=== PATIENT | female | born 1940 | race Two or more races ===

== ENCOUNTER 2020-11-18 11:15 | Outpatient (CLI) | payer MEDICARE, BC | END 2020-11-18 23:59 | disposition home health service (06) | LOC: WOU 11:15 | PROVIDERS: ATTEND Specialist | DX: I87.312 Chronic venous hypertension (idiopathic) with ulcer of left lower extremity (principal); L97.322 Non-pressure chronic ulcer of left ankle with fat layer exposed; I87.2 Venous insufficiency (chronic) (peripheral); S91.311D Laceration without foreign body, right foot, subsequent encounter; V49.9XXD Car occupant (driver) (passenger) injured in unspecified traffic accident, subsequent encounter; R60.0 Localized edema | CPT/HCPCS: 29580; A6209 ==

== ENCOUNTER 2020-11-25 11:30 | Outpatient (CLI) | payer MEDICARE, BC | END 2020-11-25 23:59 | disposition home health service (06) | LOC: WOU 11:30 | PROVIDERS: ATTEND Specialist | DX: I87.312 Chronic venous hypertension (idiopathic) with ulcer of left lower extremity (principal); L97.328 Non-pressure chronic ulcer of left ankle with other specified severity; I87.2 Venous insufficiency (chronic) (peripheral); S81.812D Laceration without foreign body, left lower leg, subsequent encounter; V49.9XXD Car occupant (driver) (passenger) injured in unspecified traffic accident, subsequent encounter; R22.43 Localized swelling, mass and lump, lower limb, bilateral | CPT/HCPCS: G0463 ==

== ENCOUNTER 2020-12-02 10:30 | Outpatient (CLI) | payer MEDICARE, BC | END 2020-12-02 23:59 | disposition home health service (06) | LOC: WOU 10:30 | PROVIDERS: ATTEND Specialist | DX: S81.812D Laceration without foreign body, left lower leg, subsequent encounter (principal); V49.9XXD Car occupant (driver) (passenger) injured in unspecified traffic accident, subsequent encounter; I87.2 Venous insufficiency (chronic) (peripheral); R22.43 Localized swelling, mass and lump, lower limb, bilateral | CPT/HCPCS: A6197; G0463 ==

== ENCOUNTER 2020-12-09 11:06 | Outpatient (CLI) | payer MEDICARE, BC | END 2020-12-09 23:59 | disposition home health service (06) | LOC: WOU 11:06 | PROVIDERS: ATTEND Specialist | DX: S81.812D Laceration without foreign body, left lower leg, subsequent encounter (principal); V49.9XXD Car occupant (driver) (passenger) injured in unspecified traffic accident, subsequent encounter; I87.2 Venous insufficiency (chronic) (peripheral); R22.43 Localized swelling, mass and lump, lower limb, bilateral; Z87.891 Personal history of nicotine dependence; M79.662 Pain in left lower leg | CPT/HCPCS: A6209; G0463 ==

== ENCOUNTER 2020-12-16 11:30 | Outpatient (CLI) | payer MEDICARE, BC | END 2020-12-16 23:59 | disposition home health service (06) | LOC: WOU 11:30 | PROVIDERS: ATTEND Specialist | DX: S81.812D Laceration without foreign body, left lower leg, subsequent encounter (principal); V49.40XD Driver injured in collision with unspecified motor vehicles in traffic accident, subsequent encounter; I87.2 Venous insufficiency (chronic) (peripheral); R60.0 Localized edema; Z79.899 Other long term (current) drug therapy | CPT/HCPCS: G0463 ==

== ENCOUNTER 2020-12-23 10:45 | Outpatient (CLI) | payer MEDICARE, BC | END 2020-12-23 23:59 | disposition home health service (06) | LOC: WOU 10:45 | PROVIDERS: ATTEND Specialist | DX: S81.812D Laceration without foreign body, left lower leg, subsequent encounter (principal); V49.9XXD Car occupant (driver) (passenger) injured in unspecified traffic accident, subsequent encounter; I87.312 Chronic venous hypertension (idiopathic) with ulcer of left lower extremity; L97.328 Non-pressure chronic ulcer of left ankle with other specified severity; I87.2 Venous insufficiency (chronic) (peripheral); R60.0 Localized edema; T79.2XXD Traumatic secondary and recurrent hemorrhage and seroma, subsequent encounter; Z79.899 Other long term (current) drug therapy | CPT/HCPCS: A6197; A6253; G0463; A6209 ==

== ENCOUNTER 2020-12-30 11:25 | Outpatient (CLI) | payer MEDICARE, BC ==
[2020-12-30] MEDS ORDERED: LIDOCAINE SOLN 4% 50 ML BOTTLE ONE (11:53)
== END 2020-12-30 23:59 | disposition home health service (06) ==
LOC: WOU 11:25
PROVIDERS: ATTEND Specialist
DX: I87.312 Chronic venous hypertension (idiopathic) with ulcer of left lower extremity (principal); L97.328 Non-pressure chronic ulcer of left ankle with other specified severity; S81.812D Laceration without foreign body, left lower leg, subsequent encounter; V49.9XXD Car occupant (driver) (passenger) injured in unspecified traffic accident, subsequent encounter; I87.2 Venous insufficiency (chronic) (peripheral); T79.2XXD Traumatic secondary and recurrent hemorrhage and seroma, subsequent encounter; Z79.899 Other long term (current) drug therapy
CPT/HCPCS: G0463

== ENCOUNTER 2021-01-06 11:00 | Outpatient (CLI) | payer MEDICARE, BC | END 2021-01-06 23:59 | disposition home or self-care (01) | LOC: WOU 11:00 | PROVIDERS: ATTEND Specialist | DX: I87.312 Chronic venous hypertension (idiopathic) with ulcer of left lower extremity (principal); L97.328 Non-pressure chronic ulcer of left ankle with other specified severity; L97.823 Non-pressure chronic ulcer of other part of left lower leg with necrosis of muscle; I87.2 Venous insufficiency (chronic) (peripheral); R60.0 Localized edema; Z79.899 Other long term (current) drug therapy | CPT/HCPCS: G0463 ==

== ENCOUNTER 2021-01-13 11:27 | Outpatient (CLI) | payer MEDICARE, BC ==
[2021-01-13] MEDS ORDERED: LIDOCAINE SOLN 4% 50 ML BOTTLE ONE (11:35)
== END 2021-01-13 23:59 | disposition home health service (06) ==
LOC: WOU 11:27
PROVIDERS: ATTEND Specialist
DX: S81.812A Laceration without foreign body, left lower leg, initial encounter (principal); X58.XXXA Exposure to other specified factors, initial encounter; Y92.89 Other specified places as the place of occurrence of the external cause; L97.328 Non-pressure chronic ulcer of left ankle with other specified severity; I87.2 Venous insufficiency (chronic) (peripheral); R60.0 Localized edema; Z79.899 Other long term (current) drug therapy
CPT/HCPCS: 11042

== ENCOUNTER 2021-01-20 11:20 | Outpatient (CLI) | payer MEDICARE, BC ==
[2021-01-20] MEDS ORDERED: LIDOCAINE SOLN 4% 50 ML BOTTLE ONE (11:29)
== END 2021-01-20 23:59 | disposition home health service (06) ==
LOC: WOU 11:20
PROVIDERS: ATTEND Specialist
DX: I87.312 Chronic venous hypertension (idiopathic) with ulcer of left lower extremity (principal); L97.322 Non-pressure chronic ulcer of left ankle with fat layer exposed; L97.328 Non-pressure chronic ulcer of left ankle with other specified severity; S81.812D Laceration without foreign body, left lower leg, subsequent encounter; X58.XXXD Exposure to other specified factors, subsequent encounter; I87.2 Venous insufficiency (chronic) (peripheral); R60.0 Localized edema; Z87.891 Personal history of nicotine dependence; Z79.899 Other long term (current) drug therapy
CPT/HCPCS: 87070; 87075; 87077; A6210; A6452; G0463

== ENCOUNTER 2021-01-27 11:05 | Outpatient (CLI) | payer MEDICARE, BC | END 2021-01-27 23:59 | disposition home health service (06) | LOC: WOU 11:05 | PROVIDERS: ATTEND Specialist | DX: I87.312 Chronic venous hypertension (idiopathic) with ulcer of left lower extremity (principal); L97.322 Non-pressure chronic ulcer of left ankle with fat layer exposed; L97.328 Non-pressure chronic ulcer of left ankle with other specified severity; S81.812D Laceration without foreign body, left lower leg, subsequent encounter; V49.9XXD Car occupant (driver) (passenger) injured in unspecified traffic accident, subsequent encounter; I87.2 Venous insufficiency (chronic) (peripheral); R60.0 Localized edema | CPT/HCPCS: A6210; G0463 ==

== ENCOUNTER 2021-02-03 11:15 | Outpatient (CLI) | payer MEDICARE, BC | END 2021-02-03 23:59 | disposition home or self-care (01) | LOC: WOU 11:15 | PROVIDERS: ATTEND Specialist | DX: I87.312 Chronic venous hypertension (idiopathic) with ulcer of left lower extremity (principal); L97.322 Non-pressure chronic ulcer of left ankle with fat layer exposed; S71.112D Laceration without foreign body, left thigh, subsequent encounter; V49.69XD Unspecified car occupant injured in collision with other motor vehicles in traffic accident, subsequent encounter; T79.2XXD Traumatic secondary and recurrent hemorrhage and seroma, subsequent encounter; R60.0 Localized edema; M79.7 Fibromyalgia; J44.9 Chronic obstructive pulmonary disease, unspecified; Z90.710 Acquired absence of both cervix and uterus; Z87.891 Personal history of nicotine dependence; Z79.899 Other long term (current) drug therapy | CPT/HCPCS: A6210; A6253; G0463 ==

== ENCOUNTER 2021-02-17 11:22 | Outpatient (CLI) | payer MEDICARE, BC | END 2021-02-17 23:59 | disposition home health service (06) | LOC: WOU 11:22 | PROVIDERS: ATTEND Specialist | DX: I87.312 Chronic venous hypertension (idiopathic) with ulcer of left lower extremity (principal); L97.322 Non-pressure chronic ulcer of left ankle with fat layer exposed; S81.812D Laceration without foreign body, left lower leg, subsequent encounter; X58.XXXD Exposure to other specified factors, subsequent encounter; J44.9 Chronic obstructive pulmonary disease, unspecified; M79.7 Fibromyalgia; T79.2XXA Traumatic secondary and recurrent hemorrhage and seroma, initial encounter; R22.43 Localized swelling, mass and lump, lower limb, bilateral; I87.2 Venous insufficiency (chronic) (peripheral); Z79.899 Other long term (current) drug therapy | CPT/HCPCS: A6210; G0463 ==

== ENCOUNTER 2021-02-24 10:45 | Outpatient (CLI) | payer MEDICARE, BC ==
[2021-02-24] MEDS ORDERED: LIDOCAINE SOLN 4% 50 ML BOTTLE ONE (10:54)
== END 2021-02-24 23:59 | disposition home health service (06) ==
LOC: WOU 10:45
PROVIDERS: ATTEND Specialist
DX: I87.312 Chronic venous hypertension (idiopathic) with ulcer of left lower extremity (principal); L97.322 Non-pressure chronic ulcer of left ankle with fat layer exposed; S81.812D Laceration without foreign body, left lower leg, subsequent encounter; V49.60XD Unspecified car occupant injured in collision with unspecified motor vehicles in traffic accident, subsequent encounter; Z87.891 Personal history of nicotine dependence; J44.9 Chronic obstructive pulmonary disease, unspecified; M79.7 Fibromyalgia; L95.0 Livedoid vasculitis; R22.43 Localized swelling, mass and lump, lower limb, bilateral
CPT/HCPCS: A6210; A6253; G0463

== ENCOUNTER 2021-03-03 11:30 | Outpatient (CLI) | payer MEDICARE, BC ==
[2021-03-03] MEDS ORDERED: LIDOCAINE SOLN 4% 50 ML BOTTLE ONE (11:42)
[2021-03-03] MEDS ORDERED: Z GUARD REMEDY 2 OZ OINT TP ONE (12:30)
== END 2021-03-03 23:59 | disposition home health service (06) ==
LOC: WOU 11:30
PROVIDERS: ATTEND Specialist
DX: S81.812A Laceration without foreign body, left lower leg, initial encounter (principal); X58.XXXA Exposure to other specified factors, initial encounter; Y92.89 Other specified places as the place of occurrence of the external cause; I87.2 Venous insufficiency (chronic) (peripheral); L97.328 Non-pressure chronic ulcer of left ankle with other specified severity; R60.0 Localized edema; Z79.899 Other long term (current) drug therapy
CPT/HCPCS: 11042; A6210; A6253

== ENCOUNTER 2021-03-10 11:13 | Outpatient (CLI) | payer MEDICARE, BC ==
[2021-03-10] MEDS ORDERED: TRIAMCINOLONE ACETONIDE 0.1% CR 15 GM TUBE TP ONE (12:32)
== END 2021-03-10 23:59 | disposition home health service (06) ==
LOC: WOU 11:13
PROVIDERS: ATTEND Specialist
DX: S81.812D Laceration without foreign body, left lower leg, subsequent encounter (principal); V49.9XXD Car occupant (driver) (passenger) injured in unspecified traffic accident, subsequent encounter; I87.312 Chronic venous hypertension (idiopathic) with ulcer of left lower extremity; L97.322 Non-pressure chronic ulcer of left ankle with fat layer exposed; I87.2 Venous insufficiency (chronic) (peripheral); R60.0 Localized edema; Z79.899 Other long term (current) drug therapy
CPT/HCPCS: G0463

== ENCOUNTER 2021-03-24 09:50 | Outpatient (CLI) | payer MEDICARE, BC ==
[2021-03-24] MEDS ORDERED: LIDOCAINE SOLN 4% 50 ML BOTTLE ONE (10:21)
== END 2021-03-24 23:59 | disposition home health service (06) ==
LOC: WOU 09:50
PROVIDERS: ATTEND Specialist
DX: I87.312 Chronic venous hypertension (idiopathic) with ulcer of left lower extremity (principal); L97.322 Non-pressure chronic ulcer of left ankle with fat layer exposed; S81.812D Laceration without foreign body, left lower leg, subsequent encounter; X58.XXXD Exposure to other specified factors, subsequent encounter; I87.2 Venous insufficiency (chronic) (peripheral); R60.0 Localized edema; Z79.899 Other long term (current) drug therapy
CPT/HCPCS: G0463

== ENCOUNTER → 2021-03-31 | Outpatient (CLI) | payer MEDICARE, BC ==
[~2021-03-31] MED LIST: LIDOCAINE SOLN 4% 50 ML BOTTLE ONE; UREA 10% -AHA 4% CREAM 57 GM TUBE ONE
== END | disposition home or self-care (01) ==
LOC: WOU 11:30
PROVIDERS: ATTEND Specialist
DX: I87.312 Chronic venous hypertension (idiopathic) with ulcer of left lower extremity (principal); L97.322 Non-pressure chronic ulcer of left ankle with fat layer exposed; L97.328 Non-pressure chronic ulcer of left ankle with other specified severity; L97.822 Non-pressure chronic ulcer of other part of left lower leg with fat layer exposed; I87.2 Venous insufficiency (chronic) (peripheral); Z79.899 Other long term (current) drug therapy
CPT/HCPCS: G0463

== ENCOUNTER 2021-04-07 11:40 | Outpatient (CLI) | payer MEDICARE, BC | END 2021-04-07 23:59 | disposition home or self-care (01) | LOC: WOU 11:40 | PROVIDERS: ATTEND Specialist | DX: I87.312 Chronic venous hypertension (idiopathic) with ulcer of left lower extremity (principal); L97.322 Non-pressure chronic ulcer of left ankle with fat layer exposed; L97.328 Non-pressure chronic ulcer of left ankle with other specified severity; S81.812D Laceration without foreign body, left lower leg, subsequent encounter; X58.XXXD Exposure to other specified factors, subsequent encounter; I87.2 Venous insufficiency (chronic) (peripheral); R60.0 Localized edema; Z79.899 Other long term (current) drug therapy | CPT/HCPCS: G0463 ==

== ENCOUNTER 2021-04-14 11:20 | Outpatient (CLI) | payer MEDICARE, BC ==
[2021-04-14] MEDS ORDERED: LIDOCAINE SOLN 4% 50 ML BOTTLE ONE (11:24)
== END 2021-04-14 23:59 | disposition home or self-care (01) ==
LOC: WOU 11:20
PROVIDERS: ATTEND Specialist
DX: I87.312 Chronic venous hypertension (idiopathic) with ulcer of left lower extremity (principal); L97.322 Non-pressure chronic ulcer of left ankle with fat layer exposed; L97.328 Non-pressure chronic ulcer of left ankle with other specified severity; I87.2 Venous insufficiency (chronic) (peripheral); S81.812D Laceration without foreign body, left lower leg, subsequent encounter; X58.XXXD Exposure to other specified factors, subsequent encounter; R60.0 Localized edema; Z79.899 Other long term (current) drug therapy
CPT/HCPCS: A6210; G0463

== ENCOUNTER 2021-04-21 11:20 | Outpatient (CLI) | payer MEDICARE, BC ==
[2021-04-21] MEDS ORDERED: LIDOCAINE SOLN 4% 50 ML BOTTLE ONE (11:25)
== END 2021-04-21 23:59 | disposition home health service (06) ==
LOC: WOU 11:20
PROVIDERS: ATTEND Specialist
DX: I87.312 Chronic venous hypertension (idiopathic) with ulcer of left lower extremity (principal); L97.322 Non-pressure chronic ulcer of left ankle with fat layer exposed; L97.328 Non-pressure chronic ulcer of left ankle with other specified severity; S81.812D Laceration without foreign body, left lower leg, subsequent encounter; X58.XXXD Exposure to other specified factors, subsequent encounter; I87.2 Venous insufficiency (chronic) (peripheral); R60.0 Localized edema; Z79.899 Other long term (current) drug therapy

== ENCOUNTER 2021-04-28 09:10 | Outpatient (CLI) | payer MEDICARE, BC | END 2021-04-28 23:59 | disposition home or self-care (01) | LOC: VASLAB 09:10 | PROVIDERS: ATTEND Internal Medicine | DX: I87.2 Venous insufficiency (chronic) (peripheral) (principal); L97.329 Non-pressure chronic ulcer of left ankle with unspecified severity; L97.319 Non-pressure chronic ulcer of right ankle with unspecified severity; L97.829 Non-pressure chronic ulcer of other part of left lower leg with unspecified severity; J44.9 Chronic obstructive pulmonary disease, unspecified; I95.9 Hypotension, unspecified | CPT/HCPCS: A6253 ×2; G0463 ==

== ENCOUNTER 2021-05-05 10:30 | Outpatient (CLI) | payer MEDICARE, BC ==
[2021-05-05] MEDS ORDERED: LIDOCAINE SOLN 4% 50 ML BOTTLE ONE (10:38)
== END 2021-05-05 23:59 | disposition home health service (06) ==
LOC: WOU 10:30
PROVIDERS: ATTEND Specialist
DX: S81.812A Laceration without foreign body, left lower leg, initial encounter (principal); X58.XXXA Exposure to other specified factors, initial encounter; Y93.9 Activity, unspecified; Y92.89 Other specified places as the place of occurrence of the external cause; I87.312 Chronic venous hypertension (idiopathic) with ulcer of left lower extremity; L97.312 Non-pressure chronic ulcer of right ankle with fat layer exposed; L97.318 Non-pressure chronic ulcer of right ankle with other specified severity; I87.2 Venous insufficiency (chronic) (peripheral); R60.0 Localized edema
CPT/HCPCS: 11042; 11043; A6210; A6253 ×2